=== PATIENT | female | born 1995 | race Caucasian/White ===

== ENCOUNTER 2017-04-11 15:00 | Emergency (ER) | payer MEDICAID, OTHER ==
[~2017-04-11] VITALS: Ht 157.5 cm; Wt 64.0 kg
[2017-04-11 15:04] VITALS: Ht 157.5 cm; Wt 64.0 kg
[2017-04-11] MEDS ORDERED: ACETAMINOPHEN 325 MG TAB PO STA (16:36)
[2017-04-11] MEDS ORDERED: ACET325T33 PO (16:37)
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
== END 2017-04-11 16:49 | disposition home or self-care (01) ==
LOC: FTE 15:00
DX: S40.011A Contusion of right shoulder, initial encounter (principal); Y08.89XA Assault by other specified means, initial encounter
CPT/HCPCS: Z7502; Z7610; 99283

== ENCOUNTER 2019-02-20 18:40 | Emergency (ER) | payer SELFPAY ==
[~2019-02-20] VITALS: Ht 154.9 cm; Wt 79.0 kg
[~2019-02-20 18:40] MED LIST: ACET325T33 PO
[2019-02-20 18:44] VITALS: Ht 154.9 cm; Wt 79.0 kg
--- NOTE | 2019-02-20 19:09 | ERD ---
ER Documentation Chief Complaint Chief Complaint RIGHT FACIAL NUMBNESS HPI The patient is a 23-year-old female, presenting to the ER because of right facial numbness for the last 5 days, denies blurred vision, denies watery eyes, denies drooling, dysarthria, dysphonia, denies neck pain, chest pain, abdominal pain, vomiting, denies weakness. She does not smoke nor drink, complains of increased stress in her life. Past medical history: History of Braun's palsy Past surgical History: Appendectomy ROS All systems reviewed and are negative except as per history of present illness. Medications Home Meds Active Scripts Acetaminophen* (Tylenol*) 325 Mg Tablet, 2 TAB PO Q4 PRN for PAIN AND OR ELEVATED TEMP, #30 TAB Prov:GABI SUBRAMANIAN PA-C 04/11/17 Allergies Allergies: Coded Allergies: Sulfa (Sulfonamide Antibiotics) (Verified Allergy, Unknown, 11/22/14) PMhx/Soc History of Surgery: Yes (APPENDECTOMY) Anesthesia Reaction: No Hx Neurological Disorder: No Hx Respiratory Disorders: No Hx Cardiac Disorders: No Hx Psychiatric Problems: No Hx Miscellaneous Medical Probl: No Hx Alcohol Use: No Hx Substance Use: No Hx Tobacco Use: No Physical Exam Vitals Vital Signs Date Temp Pulse Resp B/P (MAP) Pulse Ox O2 O2 Flow FiO2 Time Delivery Rate 02/20/19 98.4 55 19 105/56 100 Room Air 20:05 (72) 02/20/19 99.3 64 18 120/58 98 18:44 (78) Physical Exam Const: No acute distress. Head: Atraumatic. Eyes: Normal Conjunctiva. ENT: Normal External Ears, Nose and Mouth. Neck: Full range of motion. No meningismus. Resp: Clear to auscultation bilaterally. Cardio: Regular rate and rhythm. Abd: Soft, non distended, normal bowel sounds, non tender. Skin: No petechiae or rashes. Back: No midline or flank tenderness. Ext: No cyanosis, or edema. Neur: Awake and alert. No focal deficit Psych: Normal Mood and Affect. Results 24 hrs Laboratory Tests Test 02/20/19 19:33 POC Beta HCG, Qualitative NEGATIVE Procedures/MDM EKG: Read by emergency physician Rate/Rhythm: Bradycardia 55 beats/min QRS, ST, T-waves: No ST elevation, no T inversion, SA Impression: Abnormal EKG MEDICAL MAKING DECISION: The patient is a 23-year-old female, presenting with acute paresthesia, most likely due to acute stress. She is stable for outpatient follow-up The differential diagnoses considered include but are not limited to Braun's palsy, anxiety attack, panic attack, acute stress Departure Diagnosis: Primary Impression: Paresthesia Condition: Good Comments I discussed the findings with the patient. I advised the patient to follow-up with the primary physician in about 2-3 days, sooner if needed and return if any concern. Disclaimer: Inadvertent spelling and grammatical errors are likely due to EHR/dictation software use and do not reflect on the overall quality of patient care. Also, please note that the electronic time recorded on this note does not necessarily reflect the actual time of the patient encounter. EMEKA GRAMAJO MD Feb 20, 2019 19:09
[2019-02-20 20:05] VITALS: BP 105/56; PULSE 55; RESP 19
== END 2019-02-20 20:05 | disposition home or self-care (01) ==
LOC: E/R 18:40
DX: R20.2 Paresthesia of skin (principal)
CPT/HCPCS: 81025; 93005